=== PATIENT | female | born 1955 | race Caucasian/White ===

== ENCOUNTER 2018-09-11 07:45 | Day surgery (SDC) | payer OTHER ==
[2018-09-11] MEDS ORDERED: PERCOCET 5-3251 EACH PO (11:30)
[2018-09-11] MEDS ORDERED: COLACE100 MG PO (11:30)
== END 2018-09-11 14:30 | disposition home or self-care (01) ==
LOC: CIR.AMB 07:45
DX: D12.9 Benign neoplasm of anus and anal canal (principal); K64.1 Second degree hemorrhoids

== ENCOUNTER 2019-03-01 05:59 | Day surgery (SDC) | payer OTHER ==
[~2019-03-01 05:59] MED LIST: COLACE100 MG PO; PERCOCET 5-3251 EACH PO
== END 2019-03-01 11:06 | disposition home or self-care (01) ==
LOC: AMB-ENDOS 05:59
DX: C21.1 Malignant neoplasm of anal canal (principal)

== ENCOUNTER 2020-07-24 05:55 | Day surgery (SDC) | payer OTHER | END 2020-07-24 10:10 | disposition home or self-care (01) | LOC: AMB-ENDOS 05:55 | PROVIDERS: ATTEND Surgery | DX: K62.89 Other specified diseases of anus and rectum (principal); Z20.828 Contact with and (suspected) exposure to other viral communicable diseases ==

== ENCOUNTER 2022-10-08 06:15 | Day surgery (SDC) | payer OTHER ==
[~2022-10-08 06:15] MED LIST changes: +COZAAR50 MG PO; +EVISTA; +LYRICA300 MG PO; +MIRTAZAPINE30 M1 PO; +PROZAC20 MG PO; +RESTORIL30 M1 PO; +SYNTHROID88 MCG PO
[2022-10-08] MEDS ORDERED: ULTRACET PO (08:56)
[2022-10-08] MEDS ORDERED: MACROBID 100 M100 MG PO (08:56)
== END 2022-10-08 10:50 | disposition home or self-care (01) ==
LOC: CIR.AMB 06:15
PROVIDERS: ATTEND Obstetrics & Gynecology Gynecology
DX: N81.6 Rectocele (principal); N81.11 Cystocele, midline; Z20.822 Contact with and (suspected) exposure to COVID-19; I10 Essential (primary) hypertension

== ENCOUNTER 2025-09-30 07:00 | Day surgery (SDC) | payer OTHER ==
[2025-09-16 13:28] VITALS: BP 126/83
[~2025-09-30] VITALS: Ht 152.4 cm; Wt 71.7 kg
[~2025-09-30 07:00] MED LIST changes: +MACROBID 100 M100 MG PO; +METRONIDAZOLE/SODIUM CHLORIDE 500 MG/100 ML PIGGYBACK IV SCH; +ULTRACET PO; +levoFLOXacin IN DEXTROSE 5 % 5 MG/ML PIGGYBAG IV SCH
[2025-09-30] MEDS ORDERED: METRONIDAZOLE/SODIUM CHLORIDE 500 MG/100 ML PIGGYBACK IV ONE ×2 (07:50→07:52)
[2025-09-30] MEDS ORDERED: levoFLOXacin IN DEXTROSE 5 % 5 MG/ML PIGGYBAG IV ONE (08:30)
[2025-09-30] MEDS ORDERED: TRAM1TAB98 PO (08:56)
== END 2025-09-30 12:10 | disposition home or self-care (01) ==
LOC: CIR.AMB 07:00
PROVIDERS: ATTEND Surgery
DX: T82.594A Other mechanical complication of infusion catheter, initial encounter (principal); C21.1 Malignant neoplasm of anal canal; K56.690 Other partial intestinal obstruction; K62.89 Other specified diseases of anus and rectum